=== PATIENT | male | born 1985 | race Caucasian/White ===

== ENCOUNTER 2021-05-26 09:58 | Emergency (ER) | payer OTHER, SELFPAY ==
[2021-05-26 10:07] VITALS: BP 140/87; PULSE 96; RESP 18; TEMP 37.2; O2SAT 100
--- NOTE | 2021-05-26 10:42 | ED.ABDPAIN ---
HPI - Abdominal Pain General Chief Complaint: Abdominal Pain Stated Complaint: Abdominal pain Time Seen by Provider: 05/26/21 10:43 Source: patient Mode of arrival: ambulatory Limitations: no limitations History of Present Illness HPI narrative: Brooks Harrington is a 36 yo male with no PMH who comes to [facility] with complaints of black stools. He had a work-up for this complains of mid abdominal pain this been lasting for a number of months-states she has no primary care doctor currently I am has not had blood work in over a year Related Data Allergies Allergy/AdvReac Type Severity Reaction Status Date / Time No Known Allergies Allergy Verified 05/26/21 10:19 Review of Systems Review of Systems: Narrative: CONSTITUTIONAL: Denies fever, chills, sweats. EYES: Denies visual changes, redness, discharge. ENT: Denies rhinorrhea, congestion, sore throat, otalgia. CARDIOVASCULAR: Denies chest pain, palpitations, edema. RESPIRATORY: Denies dyspnea, wheezing, cough GASTROINTESTINAL: Has abdominal pain, has nausea, vomiting, diarrhea. GENITOURINARY: Denies dysuria, hematuria, abnormal discharge SKIN: Denies rash or itching. NEUROLOGIC: Denies numbness, or focal weakness. PSYCHIATRIC: Denies anxiety or depression. [facility] Past Medical History Medical History No acute medical problems Family History Family History Other Diabetes mellitus Heart disease Hypertension Social History Social History (Updated 05/26/21 @ 10:57 by Irene Barrientos CNP) Smoking packs per day: 0.5 Smoking cigarettes per day: 10.0 Tobacco type: cigarettes Alcohol intake: current Alcohol use details: Drinks 2-4 bottles of wine a week, denies any anxiety when he does not drink Comments At time of signature, I agree with nursing past medical, surgical, social and family history. There is no relevant family history pertinent to the presenting complaint. Exam Narrative: Exam Narrative: GENERAL: This is a well-nourished, well-developed patient, in mild distress. HEAD: normocephalic, atraumatic. EYES: Sclera clear/white. Vision is grossly intact. EARS: External ears normal, auditory canals clear and without drainage, TMs normal without perforation. Hearing grossly intact. NOSE: External nose normal without nasal discharge, nares without redness, no rhinorrhea. THROAT: Mucous membranes moist, posterior pharynx pink NECK: Neck supple, non-tender CARDIOVASCULAR: Regular rate and rhythm without murmurs, gallops, or rubs. RESPIRATORY: Clear to auscultation. Breath sounds equal bilaterally. No wheezes, rales, or rhonchi. GASTROINTESTINAL: Abdomen soft, tender, epigastric and periumbilical, left lower quadrant SKIN: warm, intact with no suspicious lesions or rash, good texture and turgor. NEURO: awake, alert, and oriented to person, place and time. There were no obvious focal neurologic abnormalities. Steady gait EXTREMITIES: Normal range of motion. BACK: Nontender without deformity Course Course Emergency Course: [facility] of [facility] abdominal pain times months Patient started on Zofran and Pepcid twice daily and needs to follow-up with primary care physician, needs blood work Discussed same with patient Vital Signs Vital signs: Vital Signs Temperature 98.9 F 05/26/21 10:07 Pulse Rate 96 05/26/21 10:07 Respiratory Rate 18 05/26/21 10:07 Blood Pressure 140/87 05/26/21 10:07 Pulse Oximetry 100 05/26/21 10:07 Temperature 98.9 F 05/26/21 10:07 Pulse Rate 96 05/26/21 10:07 Respiratory Rate 18 05/26/21 10:07 Blood Pressure 140/87 05/26/21 10:07 Pulse Oximetry 100 05/26/21 10:07 MDM - Abdominal Pain Differential Diagnosis Differential diagnosis: Likely abdominal pain, constipation, diverticulitis, gastroenteritis, pancreatitis and other Critical Care Time
== END 2021-05-26 11:04 | disposition home or self-care (01) ==
PROVIDERS: Emergency Provider Nurse Practitioner
DX: R10.13 Epigastric pain (principal); F17.210 Nicotine dependence, cigarettes, uncomplicated
CPT/HCPCS: 99213; G0463

== ENCOUNTER 2022-08-08 10:53 | Emergency (ER) | payer OTHER, SELFPAY ==
[2022-08-08 10:56] VITALS: BP 120/76; PULSE 101; RESP 14; TEMP 36.7; O2SAT 100
--- NOTE | 2022-08-08 11:36 | ED.URI ---
HPI - URI/Sore Throat General Chief Complaint: Upper Respiratory Infection Stated Complaint: sore throat Time Seen by Provider: 08/08/22 11:29 Source: patient and RN notes reviewed Mode of arrival: ambulatory Limitations: no limitations History of Present Illness HPI Narrative: 37-year-old male who is currently undergoing chemotherapy presents with concern for 3-day history of sore throat, body aches. He reports occasional cough, however he is not sure if that is related to his smoking or his illness. He reports history of frequent strep as a child. He denies any known sick contacts. He denies any [id number] intervention. He denies fever, chills, sweats, shortness of breath MD elicited complaint: cough and sore throat Related Data Home Medications Medication Instructions Recorded Confirmed imatinib 400 mg tablet (Gleevec) 400 mg PO BID 08/08/22 08/08/22 Allergies Allergy/AdvReac Type Severity Reaction Status Date / Time No Known Allergies Allergy Verified 05/26/21 10:19 Review of Systems Review of Systems: CONSTITUTIONAL: Reports malaise. Denies chills, sweats, or fever. EYES: Denies visual changes, redness, or discharge. ENT: Denies rhinorrhea, congestion, sinus pain, otalgia. Reports sore throat. CARDIOVASCULAR: Denies chest pain, palpitations, or edema. RESPIRATORY: Reports occasional cough. Denies dyspnea. GASTROINTESTINAL: Denies abdominal pain, nausea, vomiting, diarrhea SKIN: Denies rash or itching. MUSCULOSKELETAL: Reports myalgia. NEUROLOGIC: Denies headache. All systems reviewed & are unremarkable except as noted in HPI and below PMFSH Past Medical History Medical History No acute medical problems Family History Family History Other Diabetes mellitus Heart disease Hypertension Social History Social History (Updated 05/26/21 @ 10:57 by Irene Barrientos CNP) Smoking packs per day: 0.5 Smoking cigarettes per day: 10.0 Tobacco type: cigarettes Alcohol intake: current Alcohol use details: Drinks 2-4 bottles of wine a week, denies any anxiety when he does not drink Comments At time of signature, agree with nursing past medical, surgical, social and family history. There is no relevant family history pertinent to the presenting complaint Exam Narrative: GENERAL: Nontoxic appearing and in no acute distress. HEAD: Normocephalic EYES: PERRLA, conjunctivae clear ENT: Nares clear. Mucous membranes moist. TM pearly guillaume with dull light reflex bilaterally; no tragal tenderness. Oropharynx erythematous without lesions. Tonsils not enlarged and without exudate, no drooling, no hoarseness, no trismus, uvula midline. NECK: Supple. No lymphadenopathy CHEST: Clear to auscultation, breath sounds equal. No wheezing, rhonchi, rales, or stridor. No respiratory distress, speaks in full sentences. HEART: Regular rate and rhythm. No murmur heard. SKIN: Warm, dry, no rash. NEURO: Alert and oriented x3. PSYCH: Normal mood and affect Course Course Emergency Course: Patient is aware of diagnosis, understands and agrees to treatment plan. Anticipatory guidance given. Patient agrees to follow-up as directed and is aware of reasons to seek care at the emergency department. Portions of this record may have been created with voice recognition software Level of Care: Express Care Visit Vital Signs Vital signs: Vital Signs Temperature 98.1 F 08/08/22 10:56 Pulse Rate 101 H 08/08/22 10:56 Respiratory Rate 14 08/08/22 10:56 Blood Pressure 120/76 08/08/22 10:56 Pulse Oximetry 100 08/08/22 10:56 Oxygen Delivery Room Air 08/08/22 10:56 Temperature 98.1 F 08/08/22 10:56 Pulse Rate 101 H 08/08/22 10:56 Respiratory Rate 14 08/08/22 10:56 Blood Pressure 120/76 08/08/22 10:56 Pulse Oximetry 100 08/08/22 10:56 Oxygen Delivery Room Air 08/08/22 10:56 R
== END 2022-08-08 12:05 | disposition home or self-care (01) ==
PROVIDERS: Emergency Provider Nurse Practitioner
DX: Z13.83 Encounter for screening for respiratory disorder NEC (principal); J02.9 Acute pharyngitis, unspecified; F17.210 Nicotine dependence, cigarettes, uncomplicated
CPT/HCPCS: 87081; 87804; 99213; G0463

== ENCOUNTER 2022-10-21 13:50 | Emergency (ER) | payer OTHER, SELFPAY ==
[2022-10-21 14:10] VITALS: BP 122/80; PULSE 100; RESP 20; TEMP 36.8; O2SAT 100
--- NOTE | 2022-10-21 17:14 | ED.URI ---
HPI - URI/Sore Throat General Chief Complaint: Upper Respiratory Infection Stated Complaint: Cough/Body Ache/Sore Throat Time Seen by Provider: 10/21/22 16:30 Source: patient, RN notes reviewed and old records reviewed Mode of arrival: ambulatory Limitations: no limitations History of Present Illness HPI Narrative: 37 year old male presents to [facility] with complaints of cough, body ache, nasal congestion and drainage for the past 48 hours. Patient reports some medial chest tightness with cough, denies any shortness of breath or any wheezing. Patient reports that he has had some chills but does not know of any fevers. Patient voices some sore throat and feels tired. He reports that he has taken some Tylenol for his symptoms only. MD elicited complaint: cough, sore throat and other (body aches) Onset (ago): day(s) (2) Pain scale (0-10): 2 Treatments prior to arrival: acetaminophen Related Data Home Medications Medication Instructions Recorded Confirmed imatinib 400 mg tablet (Gleevec) 400 mg PO BID 08/08/22 10/21/22 pantoprazole 40 mg tablet,delayed 40 mg PO DAILY 10/21/22 10/21/22 release Allergies Allergy/AdvReac Type Severity Reaction Status Date / Time No Known Allergies Allergy Verified 10/21/22 16:35 Review of Systems Review of Systems: CONSTITUTIONAL: Reports malaise, chills, sweats, no known fever. EYES: Denies visual changes, redness, or discharge. ENT: Reports rhinorrhea, congestion, sinus pain,no otalgia positive sore throat. CARDIOVASCULAR: Denies chest pain, palpitations, or edema. RESPIRATORY: Reports cough.? Denies dyspnea.medial chest tight with cough GASTROINTESTINAL: Denies abdominal pain, nausea, vomiting, diarrhea SKIN: Denies rash or itching. MUSCULOSKELETAL: Reports myalgia. NEUROLOGIC: Denies headache. All systems reviewed & are unremarkable except as noted in HPI and below PMFSH Past Medical History Medical History (Updated 10/28/22 @ 13:59 by Aleisha Frazier NP) Gastrointestinal stromal tumor (GIST) GERD (gastroesophageal reflux disease) Surgical History Surgical History (Updated 10/27/22 @ 08:19 by Aleisha Frazier NP) History of surgery on arm right forearm tendon muscle repair Family History Family History Other Diabetes mellitus Heart disease Hypertension Social History Social History (Updated 10/28/22 @ 13:58 by Aleisha Frazier NP) Smoking packs per day: 0.5 Smoking cigarettes per day: 10.0 Tobacco type: cigarettes Additional smoking assessment comments: 10/21/2022 reports no smoking Alcohol intake: current Alcohol use details: Drinks 2-4 bottles of wine a week, denies any anxiety when he does not drink Comments At time of signature, agree with nursing past medical, surgical, social and family history. There is no relevant family history pertinent to the presenting complaint Exam Narrative: GENERAL: Well-appearing, well-nourished, and in no acute distress. HEAD: Normocephalic EYES: PERRLA, conjunctivae clear ENT: Nares clear, turbinates edematous and erythematous, clear discharge. Mucous membranes moist. TM pearly guillaume with dull light reflex bilaterally; no tragal tenderness. Oropharynx erythematous without lesions. Tonsils not enlarged and without exudate, no drooling, no hoarseness, no trismus, uvula midline. NECK: Supple. No lymphadenopathy CHEST: Clear to auscultation, breath sounds equal. No wheezing, rhonchi, rales, or stridor. No respiratory distress, speaks in full sentences.harsh cough SAO2 100% on room air HEART: Regular rate and rhythm. No murmur heard. SKIN: Warm, dry, no rash. NEURO: Alert and oriented x3. PSYCH: Normal mood and affect Course Course Emergency Course: Patient is aware of diagnosis, understands and agrees to treatment plan.? Anticipatory guidance given.? Patient agrees to follow-up as directed and is aware of reason
== END 2022-10-21 17:36 | disposition home or self-care (01) ==
PROVIDERS: Emergency Provider Registered Nurse; PCP Family Medicine
DX: J06.9 Acute upper respiratory infection, unspecified (principal)
CPT/HCPCS: 87081; 87804; 87880; 99213; G0463

== ENCOUNTER 2023-02-26 13:13 | Emergency (ER) | payer OTHER, SELFPAY ==
[2023-02-26 13:22] VITALS: BP 122/93; PULSE 96; RESP 16; TEMP 36.8; O2SAT 100
[2023-02-26 13:24] VITALS: BP 122/93; PULSE 96; RESP 16; TEMP 36.8; O2SAT 100
--- NOTE | 2023-02-26 14:29 | ED.GENADULT ---
HPI - General Adult General Chief complaint: Upper Respiratory Infection Stated complaint: Sore Throat Source: patient Mode of arrival: ambulatory Limitations: no limitations History of Present Illness HPI narrative: PATIENT PRESENTS FOR EVALUATION OF SICK SYMPTOMS FOR THE LAST 36 HOURS. SYMPTOMS INCLUDE CHILLS, NAUSEA, BODY ACHES, SORE THROAT, DIARRHEA. NO FEVER, COUGH, OTALGIA, VOMITING. NO RECENT SICK CONTACTS TO HIS KNOWLEDGE. HE IS CURRENTLY ON CHEMOTHERAPY FOR STOMACH CANCER. HE ADMITS TO DRINKING 2 BOTTLES OF WINE PER SITTING SEVERAL TIMES PER WEEK. HE SMOKES HALF A PACK PER DAY AND ALSO USES MARIJUANA. DENIES ANY ILLICIT DRUG USE. HE IS NOT TAKING ANY MEDICATIONS TO ASSIST WITH THE SYMPTOMS. Related Data Home Medications Medication Instructions Recorded Confirmed imatinib 400 mg tablet (Gleevec) 400 mg PO BID 08/08/22 02/26/23 pantoprazole 40 mg tablet,delayed 40 mg PO DAILY 10/21/22 02/26/23 release Allergies Allergy/AdvReac Type Severity Reaction Status Date / Time No Known Allergies Allergy Verified 02/26/23 13:23 Review of Systems Review of Systems: CONSTITUTIONAL: REPORTS CHILLS. DENIES FEVER OR SWEATS. EYES: DENIES VISUAL CHANGES, REDNESS, OR DISCHARGE. ENT: REPORTS SORE THROAT. DENIES RHINORRHEA, CONGESTION,OR OTALGIA. CARDIOVASCULAR: DENIES CHEST PAIN, PALPITATIONS, OR EDEMA. RESPIRATORY: REPORTS COUGH. DENIES SOB GASTROINTESTINAL:REPORTS NAUSEA AND DIARRHEA. DENIES ABDOMINAL PAIN OR VOMITING GENITOURINARY: DENIES DYSURIA OR HEMATURIA. SKIN: DENIES RASH OR ITCHING. MUSCULOSKELETAL: REPORTS GENERALIZED BODY ACHES NEUROLOGIC: DENIES HEADACHE, NUMBNESS, DIZZINESS, OR WEAKNESS. PSYCHIATRIC: DENIES ANXIETY OR DEPRESSION. [facility] Past Medical History Medical History Gastrointestinal stromal tumor (GIST) GERD (gastroesophageal reflux disease) Surgical History Surgical History (Updated 10/27/22 @ 08:19 by Aleisha Frazier NP) History of surgery on arm right forearm tendon muscle repair Family History Family History Other Diabetes mellitus Heart disease Hypertension Social History Social History Smoking packs per day: 0.5 Smoking cigarettes per day: 10.0 Tobacco type: cigarettes Additional smoking assessment comments: 10/21/2022 reports no smoking Alcohol intake: current Alcohol use details: Drinks 2-4 bottles of wine a week, denies any anxiety when he does not drink Substance use: current Substance use type: marijuana Living arrangements: with family Gender identity (if verbalized by the patient): Male Spiritual care concerns: No Exam Narrative: GENERAL: WELL-APPEARING, WELL-NOURISHED, AND IN NO ACUTE DISTRESS. HEAD: NORMOCEPHALIC, ATRAUMATIC. EYES: PERRLA AND EOMI. ENT: NARES CLEAR, NO RHINORRHEA OR EPISTAXIS. MUCOUS MEMBRANES MOIST. POSTERIOR PHARYNGEAL ERYTHEMA WITHOUT EXUDATE. UVULA IS MIDLINE. BILATERAL TMS PEARLY DUNCAN NONBULGING NECK: SUPPLE. NO ADENOPATHY OR MASSES. NO CAROTID BRUITS OR JVD CHEST: CLEAR TO AUSCULTATION. NO RESPIRATORY DISTRESS. NO WHEEZES RALES OR RHONCHI HEART: REGULAR RATE AND RHYTHM. NO MURMUR HEARD. NORMAL PERIPHERAL PULSES. ABDOMEN: SOFT, NONTENDER, NONDISTENDED, NORMAL ACTIVE BOWEL SOUNDS. EXTREMITIES: NORMAL RANGE OF MOTION. NO EDEMA. SKIN: WARM, DRY, NO RASH. NEURO: NO FOCAL DEFICITS. ALERT AND ORIENTED X3. PSYCH: NORMAL MOOD AND AFFECT. Course Course Emergency Course: THIS IS A 37-YEAR-OLD MALE WHO PRESENTS FOR EVALUATION OF SICK SYMPTOMS. STREP, COVID, INFLUENZA WERE ALL NEGATIVE. EXAM IS CONSISTENT WITH ACUTE VIRAL SYNDROME. [id number] AGENTS FOR SYMPTOM MANAGEMENT. I DID OFFER TO PROVIDE HIM WITH A PRESCRIPTION FOR ANTIEMETIC, WHICH HE DECLINED. HE HAS SOME AT HOME. FOLLOW UP THIS WEEK FOR FURTHER EVALUATION AND TR
== END 2023-02-26 15:02 | disposition home or self-care (01) ==
PROVIDERS: Emergency Provider Nurse Practitioner; PCP Family Medicine
DX: B34.9 Viral infection, unspecified (principal); F17.210 Nicotine dependence, cigarettes, uncomplicated; Z20.822 Contact with and (suspected) exposure to COVID-19
CPT/HCPCS: 87081; 87426; 87804; 87880; 99213; C9803; G0463